=== PATIENT | male | born 1935 | race Caucasian/White ===

== ENCOUNTER 2017-11-04 11:08 | Emergency (ER) | payer OTHER, MEDICARE ==
[2017-11-04 11:54] VITALS: BP 122/73
[2017-11-04] MEDS ORDERED: TDAP ADULT 0.5 ML INJ (BOOSTRIX) IM ONE (11:56)
--- NOTE | 2017-11-04 12:18 | EDPHY ---
H & P Time Seen by Provider: 11/04/17 11:26 HPI/ROS: This patient sustained a right hand laceration to the dorsum of his hand shortly prior to arrival while at home. He explains that he was working on a home improvement project in a sterile well when it board fell from above with a lag screw protruding that is struck the top of his hand and caused this laceration. He reports moderate bleeding that slowed with direct pressure and bandage applied prior to arrival. He reports mild pain at the site. He denies any other injuries. ROS: Musculoskeletal: No underlying bony pain to the affected hand. No difficulty moving fingers in the affected hand Neuro: No numbness or tingling 5 point ROS is otherwise negative says was mention in HPI and ROS. Past Medical/Surgical History: Tetanus is not up today. Patient is otherwise healthy. Smoking Status: Heavy smoker Physical Exam: Physical Exam Vital signs are normal. General: No acute distress HEENT: Atraumatic. Eyes: Pupils equal and react to light. Extraocular motions are intact. Lungs: No respiratory distress. Cardiac: Brisk capillary refill is intact throughout. Pulses are 2+ and symmetric in the affected extremity. Skin: No rash or pallor. Patient has a 3 x 3 cm triangular laceration was flap -type laceration with subcutaneous tissue evident but no evidence of injury to deeper structures and no foreign bodies evident on direct examination. Minimal bleeding is present. Neuro: Alert and oriented with no sensorimotor deficits in the affected upper extremity. Constitutional: Initial Vital Signs Temperature (C) 36.3 C 11/04/17 11:45 Heart Rate 66 11/04/17 11:45 Respiratory Rate 16 11/04/17 11:45 Blood Pressure 122/73 H 11/04/17 11:45 O2 Sat (%) 96 11/04/17 11:45 O2 Delivery Mode Room Air Allergies/Adverse Reactions: Sulfa (Sulfonamide Antibiotics) Allergy (Intermediate, Verified 11/04/17 11:40) nausea propoxyphene napsylate [From Darvocet-N 100] Allergy (Verified 11/04/17 11:40) Home Medications: Medication Instructions Recorded Aspirin EC 81 mg (*) 11/04/17 Citrucel 11/04/17 Coumadin 4MG (*) 6.5 11/04/17 Lisinopril 11/04/17 Metoprolol Tartrate [Lopressor 25 11/04/17 mg (*)] Mutlivitamin 11/04/17 Ranitidine HCl 11/04/17 Rosuvastatin Calcium [Crestor 40mg 11/04/17 (*)] Tamsulosin HCl 11/04/17 MDM/Departure - MDM Procedures: The wound is 6 cm in length altogether. The wound was copiously irrigated with saline. The wound was explored for foreign bodies and none were found. The wound was prepped and draped in the normal sterile fashion. The wound was anesthetized using 1% plain lidocaine mixed 50 50 with 0.5% Marcaine, 27 gauge needle -5 mL with good effect. The edges were reapproximated using 4 0 Prolene- 13 sutures altogether-combination of interrupted and running with good hemostasis and cosmesis. The patient tolerated the procedure well. There were no complications Medications Given: Discontinued Medications Diphtheria/Tetanus/Acell Pertussis (Boostrix) 0.5 ml IM .ONCE ONE Stop: 11/04/17 11:57 Last Admin: 11/04/17 12:27 Dose: 0.5 ml ED Course/Re-evaluation: A dressing was placed on the patient's injured hand we counseled him regarding wound care. - Depart Disposition: Home, Routine, Self-Care Clinical Impression: Hand laceration Qualifiers: Encounter type: initial encounter Foreign body presence: without foreign body Laterality: right Qualified Code(s): S61.411A - Laceration without foreign body of right hand, initial encounter Condition: Good Instructions: Laceration (ED) Additional Instructions: Diagnosis: Hand laceration Plan: Keep sutures clean and dry for the next 2 days. Then remove dressing, clean gently with warm soapy water daily Return in 12 days for wound check and possible suture removal at that time. Return sooner if he develops redness, discharge or other concerns for infection Tylenol for pain as needed. Referrals: Vamshi Lozada MD [Primary Care Provider] - As per Instructions
== END 2017-11-04 12:40 | disposition home or self-care (01) ==
LOC: CED 11:08
PROC: 0HQFXZZ Repair Right Hand Skin, External Approach (ICD-10-PCS; principal; 2017-11-04)
DX: S61.411A Laceration without foreign body of right hand, initial encounter (principal); F17.200 Nicotine dependence, unspecified, uncomplicated; Z23 Encounter for immunization; W26.8XXA Contact with other sharp object(s), not elsewhere classified, initial encounter; Y93.89 Activity, other specified; Y92.9 Unspecified place or not applicable; Y99.9 Unspecified external cause status